=== PATIENT | male | born 1980 | race African-American/Black ===

== ENCOUNTER 2019-01-02 14:45 | Emergency (ER) | payer MEDICAID ==
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
--- NOTE | 2019-01-03 06:42 | CR ---
Right hand: Four views of the right hand are obtained. Comparison: No previous study. Angulated fifth metacarpal fracture is seen. Uncertain if this is old or acute due to difficulty in evaluating due to overlapping fragments. Soft tissue swelling is seen. No additional fracture or other bony abnormality is seen. Impression: 1. Fifth metacarpal fracture as noted above. 2. Soft tissue swelling. Diagnostic code #3
== END 2019-01-02 15:57 | disposition home or self-care (01) ==
LOC: EDBD 14:45 → JD.ED 14:45
DX: S69.92XA Unspecified injury of left wrist, hand and finger(s), initial encounter (principal); F17.210 Nicotine dependence, cigarettes, uncomplicated; W22.8XXA Striking against or struck by other objects, initial encounter
CPT/HCPCS: 73130-26-RT; 73130-RT; 99282; 99283-25

== ENCOUNTER 2019-06-17 03:08 | Emergency (ER) | payer MEDICAID ==
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
--- NOTE | 2019-06-17 16:15 | CR ---
Right 1st toe: Three views of the right 1st toe were obtained. Comparison: No previous toe or foot study. Slightly comminuted fracture is noted within the base of the distal phalanx of the 1st toe. Articular extension is seen with minimal displacement. Small tuft fracture is also noted. Soft tissue swelling is noted. No proximal abnormality is appreciated. Impression: 1. Fractures involving the distal phalanx of the right 1st toe. 2. Soft tissue swelling. Diagnostic code #3
== END 2019-06-17 03:45 | disposition home or self-care (01) ==
LOC: JD.ED 03:08
DX: S92.421A Displaced fracture of distal phalanx of right great toe, initial encounter for closed fracture (principal); W20.8XXA Other cause of strike by thrown, projected or falling object, initial encounter
CPT/HCPCS: 73660-26-T5; 73660-T5; 99283; 99283-25

== ENCOUNTER 2019-08-06 14:31 | Emergency (ER) | payer MEDICAID ==
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
== END 2019-08-06 16:03 | disposition home or self-care (01) ==
LOC: JD.ED 14:31
DX: M25.511 Pain in right shoulder (principal)
CPT/HCPCS: 99282; 99283